=== PATIENT | female | born 1985 | race Caucasian/White ===

== ENCOUNTER 2016-12-24 06:13 | Emergency (ER) | payer OTHER ==
[~2016-12-24] VITALS: Ht 157.5 cm; Wt 62.1 kg
--- NOTE | 2016-12-24 06:25 | ED GI/GU/ABDOMINAL COMPLAINT ---
History of Present Illness General Chief Complaint: Abdominal Pain/Flank Pain Stated Complaint: ABD PAIN AND VOMITING Source: patient Exam Limitations: no limitations Vital Signs & Intake/Output Vital Signs & Intake/Output Vital Signs Date Time Temp Pulse Resp B/P B/P Pulse O2 O2 Flow FiO2 Mean Ox Delivery Rate 12/24 0659 Room Air 12/24 0631 97.6 53 17 101/66 100 Room Air Allergies Coded Allergies: cefaclor (UNKNOWN 12/24/16) Triage Nurses Notes Reviewed? yes ? n Is pt currently ? No Onset: Gradual Duration: hour(s): Timing: recent history Quality/Severity: cramping, sharpness Location: left lower quadrant Radiation: no radiation Activities at Onset: none Prior Abdominal Problems: similar symptoms Modifying Factors: Worsens With: palpation, urinating. Associated Symptoms: abdominal pain, nausea/vomiting HPI: 31 yo woman, h/o ovarian cysts and kidney stones, presents with left lower and suprapubic abdominal discomfort. She notes, "I woke up this morning and the pain was excruciating... It really hurt... I couldn't get comfortable. It felt just like a kidney stone... I am due for my period today so was thinking maybe ovarian cysts." She also has vomiting and nausea, no fever, chills, dysuria, vaginal discharge. She is due to have her menses today. She is otherwise well. (LEO HAWLEY,ORA Araya) Reconcile Medications No Known Home Medications (SHORTY HAWLEY,JONNA Wallis) Past History Travel History Traveled to [place] past 21 day No Medical History Any Pertinent Medical History? see below for history Renal: nephrolithiasis [employer]ER/Reproductive: ovarian cysts Tetanus Vaccine: Surgical History Surgical History: none Psychosocial History What is your primary language Khmer Family History Hx Contributory? No (LEO HAWLEY,ORA Araya) Review of Systems Review of Systems Constitutional: Reports: no symptoms. EENTM: Reports: no symptoms. Respiratory: Reports: no symptoms. Cardiovascular: Reports: no symptoms. GI: Reports: no symptoms. Genitourinary: Reports: no symptoms. Musculoskeletal: Reports: no symptoms. Skin: Reports: no symptoms. Neurological/Psychological: Reports: no symptoms. Hematologic/Endocrine: Reports: no symptoms. Immunologic/Allergic: Reports: no symptoms. All Other Systems: Reviewed and Negative (LEO HAWLEY,ORA Araya) Physical Exam Physical Exam General Appearance: well developed/nourished, mild distress Head: atraumatic, normal appearance Eyes: Bilateral: normal appearance, PERRL, EOMI. Ears, Nose, Throat, Mouth: hearing grossly normal, moist mucous membrane Neck: normal inspection, supple, full range of motion Respiratory: normal breath sounds, chest non-tender, no respiratory distress, quiet respiration, lungs clear Cardiovascular: regular rate/rhythm, edema, normal peripheral pulses Gastrointestinal: normal bowel sounds, soft, llq tenderness, mild, to palpation.no rebound. no guarding. Back: normal inspection Extremities: normal range of motion Neurologic/Psych: no motor/sensory deficits, awake, alert, oriented x 3 Skin: intact, normal color, warm/dry Core Measures ACS in differential dx? No Severe Sepsis Present: No Septic Shock Present: No (LEO HAWLEY,ORA Araya) Progress Differential Diagnosis: appendicitis, biliary colic, bowel obstruction, colon cancer, cholecystitis Plan of Care: Orders Procedure Date/time Status URINALYSIS 12/24 628 Active LIPASE 12/25 623 Complete HEPATIC FUNCTION PANEL 12/25 623 Complete HUMAN BETA HCG SCREEN 12/25 623 Complete CBC WITHOUT DIFFERENTIAL 12/25 623 Complete BASIC METABOLIC PANEL 12/25 623 Complete AMYLASE 12/25 623 Complete Laboratory Tests 12/24/16 0857: Urine Color Pending, Urine Clarity Pending, Urine pH Pending, Ur Specific [place] Pending, Urine Protein Pending, Urine Ketones Pending, Urine Nitrite Pending, Urine Bilirubin Pending, Urine Urobilinogen Pending, Ur Leukocyte Esterase Pending, Ur Microscopic Pending, Urine Hemoglobin Pending, Urine Glucose Pending 12/24/16 0635: Anion Gap 11, Estimated GFR > 60, BUN/Creatinine Ratio 24.3, Glucose 100 H, Calcium 9.0, Total Bilirubin 1.1, Direct Bilirubin 0.2, AST 15, ALT 30, Alkaline Phosphatase 49, Total Protein 6.7, Albumin 4.0, Amylase 60, Lipase 128, Total Beta HCG NEGATIVE, CBC w Diff NO MAN DIFF REQ, RBC 4.12 L, MCV 88.1, MCH 29.6, RDW 13.2, MPV 7.8, Gran % 60.2, Lymphocytes % 31.5, Monocytes % 6.9, Eosinophils % 1.0, Basophils % 0.4, Absolute Granulocytes 3.9, Absolute Lymphocytes 2.0, Absolute Monocytes 0.4, Absolute Eosinophils 0.1, Absolute Basophils 0, PUBS MCHC 33.6 Diagnostic Imaging: Viewed by Me: CT Scan. Discussed w/RAD: CT Scan. Initial ED EKG: pending. Hand-Off Endorsed To: SHORTY HAWLEY,JONNA Wallis Endorsed Time: 0700 Pending: consult (LEO HAWLEY,ORA Araya) Radiology Impression: PATIENT: CAMACHO ALVES PRESENT AGE: 31 PATIENT ACCOUNT NO: [id number] : 86 LOCATION: [facility] ORDERING PHYSICIAN: ORA BAILEY MD SERVICE DATE: 12/24/16 EXAM TYPE: CAT - CT ABD & PELVIS W/O IV CONTRAS EXAMINATION: CT ABDOMEN AND PELVIS WITHOUT CONTRAST CLINICAL INFORMATION: Left lower quadrant pain. COMPARISON: None TECHNIQUE: Multidetector volumetric imaging was performed from the superior aspect of the liver through the pubic symphysis. Sagittal and coronal reformatted images were obtained on the technologist's workstation. DLP: 287.29 mGy-cm FINDINGS: Limited evaluation of the solid organs and vascular structures secondary to lack of IV contrast. LUNG BASES: The visualized lung bases are unremarkable. LIVER, GALLBLADDER, AND BILIARY TREE: The unenhanced liver is normal in size, shape, and attenuation. No focal hepatic lesion or biliary ductal dilatation is present. The gallbladder is unremarkable with no evidence of radiopaque gallstones, gallbladder wall thickening, or obvious pericholecystic inflammatory changes. PANCREAS: Unremarkable. SPLEEN: Unremarkable. ADRENAL GLANDS: Unremarkable. KIDNEYS AND URETERS: The kidneys are normal in size, shape, and attenuation. Mild cortical thinning is noted within the left upper pole. Subcentimeter hypodensities are seen within the upper pole, too small to characterize. No hydronephrosis, hydroureter, or calculi seen. Slight fullness of the left renal collecting system. No perinephric stranding. BLADDER: Unremarkable. GASTROINTESTINAL TRACT: Limited evaluation secondary to lack of oral contrast. There is no bowel obstruction, free intraperitoneal air or fluid. The appendix is within normal limits. ABDOMINAL WALL: No significant hernia is appreciated. LYMPH NODES: No mesenteric, retroperitoneal or pelvic lymphadenopathy. VASCULAR: Nonaneurysmal abdominal aorta. PELVIC VISCERA: Anteverted uterus. No adnexal mass. No significant pelvic free fluid. OSSEOUS STRUCTURES: No aggressive osseous lesions. IMPRESSION: 1. No definite acute intra-abdominal or pelvic abnormality. 2. Mild fullness of the left renal collecting system without calcified renal or ureteral calculus identified. Further evaluation can be obtained with ultrasound, if clinically indicated. DICTATED BY: JOHANA ALFONSO DO DATE/TIME DICTATED:12/24/16808 PIT SHOVEL OPERATOR:MINDI DATE/TIME TRANSCRIBED:12/24/16808 CONFIDENTIAL, DO NOT COPY WITHOUT APPROPRIATE AUTHORIZATION. <Electronically signed in Other Vendor System> SIGNED BY: JOHANA ALFONSO DO 12/24/16821 Comments: Laboratory data and CAT scan results have been discussed with the patient. Patient feels comfortable going home. 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 Return if symptoms worsen or for any concerns. Prescriptions: Current Visit Scripts Oxycodone HCl/Acetaminophen (Percocet 5-325 MG Tablet) 1-2 TAB PO Q6P PRN PAIN #20 TAB (SHORTY HAWLEY,JONNA Wallis)
[2016-12-24 06:31] VITALS: BP 101/66
[2016-12-24 07:08] LABS: ABSOLUTE BASOPHIL COUNT 0 /CUMM (0.0-0.2); ABSOLUTE EOSINOPHIL COUNT 0.1 /CUMM (0.0-0.7); ABSOLUTE GRANULOCYTE CT 3.9 /CUMM (1.4-6.5); ABSOLUTE MONOCYTE COUNT 0.4 /CUMM (0.10-0.60); BASOPHIL % 0.4 % (0.0-2.0); HEMATOCRIT 36.3 % (37-47); MEAN CORPUSCULAR HGB 29.6 PG (27.0-31.0); MEAN CORPUSCULAR HGB CONC 33.6 G/DL (33.0-37.0); MEAN CORPUSCULAR VOLUME 88.1 FL (81.0-99.0); MEAN PLATELET VOLUME 7.8 FL (7.4-10.4); PLATELET COUNT 218 /CUMM (130-400); RBC DISTRIBUTION WIDTH 13.2 % (11.5-14.5); RED BLOOD CELL CT 4.12 /CUMM (4.20-5.40); WHITE BLOOD CELL COUNT 6.5 /CUMM (4.8-10.8)
[2016-12-24 07:13] LABS: GRANULOCYTE % 60.2 % (42.2-75.2)
--- NOTE | 2016-12-24 08:22 | CT SCAN REPORT ---
EXAMINATION: CT ABDOMEN AND PELVIS WITHOUT CONTRAST CLINICAL INFORMATION: Left lower quadrant pain. COMPARISON: None TECHNIQUE: Multidetector volumetric imaging was performed from the superior aspect of the liver through the pubic symphysis. Sagittal and coronal reformatted images were obtained on the technologist's workstation. DLP: 287.29 mGy-cm FINDINGS: Limited evaluation of the solid organs and vascular structures secondary to lack of IV contrast. LUNG BASES: The visualized lung bases are unremarkable. LIVER, GALLBLADDER, AND BILIARY TREE: The unenhanced liver is normal in size, shape, and attenuation. No focal hepatic lesion or biliary ductal dilatation is present. The gallbladder is unremarkable with no evidence of radiopaque gallstones, gallbladder wall thickening, or obvious pericholecystic inflammatory changes. PANCREAS: Unremarkable. SPLEEN: Unremarkable. ADRENAL GLANDS: Unremarkable. KIDNEYS AND URETERS: The kidneys are normal in size, shape, and attenuation. Mild cortical thinning is noted within the left upper pole. Subcentimeter hypodensities are seen within the upper pole, too small to characterize. No hydronephrosis, hydroureter, or calculi seen. Slight fullness of the left renal collecting system. No perinephric stranding. BLADDER: Unremarkable. GASTROINTESTINAL TRACT: Limited evaluation secondary to lack of oral contrast. There is no bowel obstruction, free intraperitoneal air or fluid. The appendix is within normal limits. ABDOMINAL WALL: No significant hernia is appreciated. LYMPH NODES: No mesenteric, retroperitoneal or pelvic lymphadenopathy. VASCULAR: Nonaneurysmal abdominal aorta. PELVIC VISCERA: Anteverted uterus. No adnexal mass. No significant pelvic free fluid. OSSEOUS STRUCTURES: No aggressive osseous lesions. IMPRESSION: 1. No definite acute intra-abdominal or pelvic abnormality. 2. Mild fullness of the left renal collecting system without calcified renal or ureteral calculus identified. Further evaluation can be obtained with ultrasound, if clinically indicated.
[2016-12-24] MEDS ORDERED: PERCOCET 5-3251 EACH PO (09:05)
== END 2016-12-24 09:11 ==
LOC: ERH 06:13
PROVIDERS: Pediatrics
DX: N20.0 Calculus of kidney (principal)
CPT/HCPCS: 74176; 81001; 96374; 96375; J0131; J2405